=== PATIENT | female | born 1945 | race Caucasian/White ===

== ENCOUNTER 2017-01-24 06:42 | Day surgery (SDC) | payer MEDICARE, BC ==
[2017-01-24] MEDS ORDERED: Bupivacaine 0.5% 50 ML MDV ONE (06:52)
[2017-01-24] MEDS ORDERED: Lidocaine 1% with EPINEPHrine 1:100,000 50 ML MDV ONE (06:52)
[2017-01-24] MEDS ORDERED: Dextrose 5%-Lactated Ringers 1,000 ML IV SCH (07:15)
[2017-01-24] MEDS ORDERED: Propofol 200 MG/20 ML SDV ONE (08:41)
[2017-01-24] MEDS ORDERED: fentaNYL 100 MCG/2 ML SDV ONE (08:41)
[2017-01-24] MEDS ORDERED: ceFAZolin 2 GM in Sodium Chloride 0.9% 50 ML IV ONE (09:00)
[2017-01-24] MEDS ORDERED: Linezolid 200 MG/100 ML Bag IV ONE (09:09)
[2017-01-24 10:38] VITALS: BP 136/62
--- NOTE | 2017-02-02 11:29 | OR ---
DATE OF PROCEDURE: 01/24/2017 PREOPERATIVE DIAGNOSIS: Bard port with leaking catheter. POSTOPERATIVE DIAGNOSIS: Bard port with leaking catheter. OPERATIVE PROCEDURE: Removal and replacement of a Bard port ([id number]). ANESTHESIA: Local plus IV sedation. INDICATIONS FOR PROCEDURE: This is a 71-year-old, presently receiving chemotherapy for an advanced breast cancer. She has known recently to have a leak in her Bard port tubing, more or less where it crosses under the clavicle. The plan is to proceed with placement of the Bard port system. We will attempt to do it through the same track that the present port is located, and potential risks including bleeding, infection, further malfunction with breakage of port system were all reviewed, and the patient wishes to proceed. DETAILS OF PROCEDURE: The patient was taken to the operating room and placed in a supine position. IV sedation was administered, after which the upper chest and neck areas were prepped and draped. The area over the pre-existing Bard port was then anesthetized with 1% lidocaine, mixed with Marcaine, a transverse incision made, carried down through the skin and subcutaneous tissue. The port was then mobilized upward along with a section of the port tubing. These were then disconnected while the port tubing was being occluded, and through the port tubing, then a guidewire was passed under fluoroscopic surveillance through the length of the tubing and into the superior vena cava. This then allowed the pre- existing port tubing to be removed. Then over a guidewire, new port tubing was then positioned and then brought to the point where it would come into the area of the right atrial superior vena cava junction. The tubing was then cut in appropriate length on its proximal end and attached to the new port, which is a power port, and this was flushed with heparinized saline. The port was then placed back into the capsule, which was then closed with 2 layers of 3-0 and 4-0 Vicryl stitch deep and 5-0 Vicryl subcuticular stitch. Steri- Strips were applied. The port was once again flushed, and good inflow and outflow was confirmed, and the procedure concluded. The patient was taken to the recovery room in satisfactory condition. Shahbaz Rodrigez MD /[id number]
== END 2017-01-24 11:00 | disposition home or self-care (01) ==
LOC: JP.SDS 06:42
PROVIDERS: ATTEND Surgery
DX: Z51.11 Encounter for antineoplastic chemotherapy (principal); T83.038A Leakage of other urinary catheter, initial encounter; I25.10 Atherosclerotic heart disease of native coronary artery without angina pectoris; I10 Essential (primary) hypertension; J44.9 Chronic obstructive pulmonary disease, unspecified; E11.9 Type 2 diabetes mellitus without complications; F32.9 Major depressive disorder, single episode, unspecified; Z95.1 Presence of aortocoronary bypass graft; Z88.2 Allergy status to sulfonamides; Z88.8 Allergy status to other drugs, medicaments and biological substances
CPT/HCPCS: 36582; C1788; J0690; J1642; J2020; J2704; J3010; J7042; J7050

== ENCOUNTER 2017-08-12 14:49 | Emergency (ER) | payer MEDICARE, BC ==
[2017-08-12] MEDS ORDERED: Lidocaine 1% 20 ML MDV INJECT ONE (15:15)
[2017-08-12] MEDS ORDERED: Bacitracin Oint 1 GM U/D Packet TOP ONE (15:16)
--- NOTE | 2017-08-12 15:18 | EDM.PDOC ---
ED HPI GENERAL MEDICAL PROBLEM - General Chief Complaint: General Stated Complaint: FALL Time Seen by Provider: 08/12/17 15:17 Source of Information: Reports: Patient History Limitations: Reports: No Limitations - History of Present Illness INITIAL COMMENTS - FREE TEXT/NARRATIVE: pt went home for lunch and she ended up tripping and landed on the l rt side of her face and had 4 laceration about 1/8 inch in lenghth x 4. She also hit very hard on her left knee and she has alot of bruising on the knee cap area. Onset: Today Duration: Hour(s): Location: Reports: Face, Lower Extremity, Left Associated Symptoms: Reports: No Other Symptoms Left Knee Pain Score (Numeric/FACES): 8 - Related Data Allergies Allergy/AdvReac Type Severity Reaction Status Date / Time aspirin Allergy Cannot Verified 08/12/17 15:04 Remember midazolam HCl [From Versed] Allergy Difficulty Verified 08/12/17 15:04 Breathing Sulfa (Sulfonamide Allergy Cannot Verified 08/12/17 15:04 Antibiotics) Remember codeine AdvReac Vomiting Verified 08/12/17 15:04 Home Meds: Home Meds Atenolol [Tenormin] 50 mg PO DAILY 03/17/16 [History] Citalopram Hydrobromide [Celexa] 20 mg PO DAILY 03/17/16 [History] Lisinopril 20 mg PO BID 03/17/16 [History] Pantoprazole [ProTONIX] 40 mg PO ACBREAKFAST 03/17/16 [History] amLODIPine [Norvasc] 5 mg PO DAILY 03/17/16 [History] Polyvinyl Alcohol/Povidone [Artificial Tears Drops] 2 drop OP Q3H PRN 03/30/16 [ History] Acetaminophen [Tylenol] 650 mg PO Q6H PRN 05/28/16 [History] Simvastatin [Simvastatin] 40 mg PO BEDTIME 05/28/16 [History] Anastrozole [Arimidex] 1 mg PO DAILY 01/23/17 [History] LORazepam [Ativan] 0.5 mg PO BID 01/23/17 [History] metFORMIN [Glucophage XR] 500 mg PO DAILY 01/23/17 [History] traMADol [Ultram] 50 mg PO Q6HR PRN 01/23/17 [History] Past Medical History HEENT History: Reports: Cataract, Impaired Vision, Sinusitis Other HEENT History: wears glasses Cardiovascular History: Reports: Bypass, CAD, High Cholesterol, Hypertension, SOB on Exertion, Stents Respiratory History: Reports: COPD, Interstitial Lung Disease, Pneumothorax, Sleep Apnea Gastrointestinal History: Reports: Cholelithiasis, Colon Polyp, Diverticulosis, GERD, Hiatal Hernia Genitourinary History: Reports: Urinary Incontinence 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: Musculoskeletal History: Reports: Arthritis, Back Pain, Chronic Neurological History: Reports: Headaches, Chronic Psychiatric History: Reports: Anxiety, Depression Endocrine/Metabolic History: Reports: Obesity/BMI 30+, Vitamin D Deficiency Immunologic History: Reports: Immunosuppression Oncologic (Cancer) History: Reports: Breast Other Oncologic History: POSITIVE LYMPH NODES Dermatologic History: Reports: Psoriasis - Infectious Disease History Infectious Disease History: Reports: Chicken Pox, Measles, Mumps - Past Surgical History HEENT Surgical History: Reports: Eye Surgery Cardiovascular Surgical History: Reports: Coronary Artery Bypass, Coronary Artery Stent, Vascular Surgery Female Surgical History: Reports: Breast Biopsy, Mastectomy, Tubal Ligation Musculoskeletal Surgical History: Reports: Knee Replacement Oncologic Surgical History: Reports: Biopsy of Breast, Mastectomy Social & Family History - Family History Family Medical History: Noncontributory Cardiac: Reports: [place] Respiratory: Reports: COPD Musculoskeletal: Reports: Arthritis, Back pain, Chronic, Fibromyalgia Endocrine/Metabolic: Reports: Hypothyroidism Oncologic: Reports: Prostate - Tobacco Use Smoking Status *Q: Former Smoker Years of Tobacco use: 30 Packs/Tins Daily: 4 Used Tobacco, but Quit: Yes Month Tobacco Last Used: 0 Second Hand Smoke Exposure: No - Caffeine Use Caffeine Use: Reports: Coffee, Tea - Alcohol Use Days Per Week of Alcohol Use: 0 - Recreational Drug Use Recreational Drug Use: No ED ROS GENERAL - Review of Systems Review Of Systems: See Below Constitutional: Reports: No Symptoms HEENT: Reports: No Symptoms, Other (pt has facial lacerations) Respiratory: Reports: No Symptoms Cardiovascular: Reports: No Symptoms Endocrine: Reports: No Symptoms GI/Abdominal: Reports: No Symptoms : Reports: No Symptoms Musculoskeletal: Reports: Other ( pain in the left knee) Skin: Reports: No Symptoms Neurological: Reports: No Symptoms ED EXAM, GENERAL - Physical Exam Exam: See Below Free Text/Narrative:: pt arrived with severe pain in the left knee. She has 4 1/8 inch laceration on the rt side of her face. This is like multiple puncture wounds. Exam Limited By: No Limitations General Appearance: Alert, Anxious, Moderate Distress Ears: Normal TMs Nose: Normal Inspection Throat/Mouth: Normal Inspection Head: Atraumatic Neck: Normal Inspection Respiratory/Chest: No Respiratory Distress Cardiovascular: Regular Rate, Rhythm GI/Abdominal: Soft, Non-Tender (Female) Exam: Deferred Rectal (Female) Exam: Deferred Extremities: Other ( Pt has severe bruising on the left knee cap area. ) Neurological: Alert, Oriented, Normal Cognition Psychiatric: Normal Affect Course - Vital Signs Last Recorded V/S: Last Vital Signs Temp 36.6 C 08/12/17 15:02 Pulse 86 08/12/17 18:04 Resp 16 08/12/17 18:04 BP 113/53 L 08/12/17 18:04 Pulse Ox 95 08/12/17 18:04 - Orders/Labs/Meds Orders: Active Orders 24 hr Category Date Time Status Knee 3V Lt [CR] Stat Exams 08/12/17 15:16 Taken Knee wo Cont Lt [CT] Stat Exams 08/12/17 16:48 Taken Meds: Medications Discontinued Medications Generic Name Dose Route Start Last Admin Trade Name Freq PRN Reason Stop Dose Admin Hydrocodone Bitart/Acetaminophen 1 tab 08/12/17 18:40 [place] 325-5 Mg PO 08/12/17 18:41 ONETIME ONE Bacitracin 1 dose 08/12/17 15:16 08/12/17 15:28 Bacitracin Oint 1 Gm TOP 08/12/17 15:17 1 dose ONETIME ONE Administration Lidocaine HCl 20 ml 08/12/17 15:15 08/12/17 15:28 Xylocaine 1% INJECT 08/12/17 15:16 20 ml ONETIME ONE Administration - Re-Assessments/Exams Free Text/Narrative Re-Assessment/Exam: 08/12/17 18:14 pt had an xray of the left knee which did not show a fracture. Because of the severe pain a cat scan of the knee was done. The laceration on the rt side of the face was cleansed well and infiltrated with lidocaine. The wounds were closed with 5-0 chromoic and 6-0 prolene. Departure - Departure Time of Disposition: 18:23 Disposition: Home, Self-Care 01 Condition: Fair Clinical Impression: Laceration, Contusion of left knee - Discharge Information Instructions: Laceration Care, Adult, Contusion, [id number] Referrals: Luis Alberto Colon MD [Primary Care Provider] - Forms: ED Department Discharge Care Plan Goals: keep facial area dry, no further ointments, sr in 7-8 days, keep pressure dressing on until tomorrow am and it can be open to air. knee xray shows a destructive osseous lesion which should be evaluated by an MRI. rtc for MRI. appt with Dr Colon next mon or . jackson [id number] prn for pain. - My Orders Last 24 Hours: My Active Orders 08/12/17 15:16 Knee 3V Lt [CR] Stat 08/12/17 16:48 Knee wo Cont Lt [CT] Stat - Assessment/Plan Last 24 Hours: My Active Orders 08/12/17 15:16 Knee 3V Lt [CR] Stat 08/12/17 16:48 Knee wo Cont Lt [CT] Stat
[2017-08-12 18:05] VITALS: BP 113/53
[2017-08-12] MEDS ORDERED: Acetaminophen/HYDROcodone 325-5 MG Tab PO ONE (18:40)
--- NOTE | 2017-08-14 09:57 | CR ---
Knee 3V Lt INDICATION: contusion to left knee FINDINGS: No acute fracture. Moderate medial and lateral compartment narrowing.
== END 2017-08-12 19:17 | disposition home or self-care (01) ==
LOC: JP.ED 14:49
DX: S01.81XA Laceration without foreign body of other part of head, initial encounter (principal); S80.02XA Contusion of left knee, initial encounter; I10 Essential (primary) hypertension; E78.00 Pure hypercholesterolemia, unspecified; I25.10 Atherosclerotic heart disease of native coronary artery without angina pectoris; F32.9 Major depressive disorder, single episode, unspecified; Z85.3 Personal history of malignant neoplasm of breast; Z95.1 Presence of aortocoronary bypass graft; Z95.5 Presence of coronary angioplasty implant and graft; Z96.659 Presence of unspecified artificial knee joint; Z87.891 Personal history of nicotine dependence; Z79.84 Long term (current) use of oral hypoglycemic drugs; Z79.899 Other long term (current) drug therapy; Z88.2 Allergy status to sulfonamides; Z88.5 Allergy status to narcotic agent; Z88.6 Allergy status to analgesic agent; Z88.8 Allergy status to other drugs, medicaments and biological substances; W01.0XXA Fall on same level from slipping, tripping and stumbling without subsequent striking against object, initial encounter
CPT/HCPCS: 12004; 12015; 73562-26-LT; 73562-LT; 73700-LT; 99283-25; 99284-25

== ENCOUNTER 2017-08-13 11:28 | Emergency (ER) | payer MEDICARE, BC ==
[2017-08-13 11:44] VITALS: BP 131/76
--- NOTE | 2017-08-13 12:12 | EDM.PDOC ---
ED HPI GENERAL MEDICAL PROBLEM - General Chief Complaint: Upper Extremity Injury/Pain Stated Complaint: FELL YESTERDAY, RT WRIST PAIN TODAY Time Seen by Provider: 08/13/17 11:50 Source of Information: Reports: Patient History Limitations: Reports: No Limitations - History of Present Illness INITIAL COMMENTS - FREE TEXT/NARRATIVE: Pepper presents today with complaint of right wrist pain. She reports she was in the emergency room yesterday for a fall and developed multiple abrasions, bruising to her right face, right arm and pain to her right knee. She states her right wrist started to hurt more last night and this morning. Right Wrist Pain Score (Numeric/FACES): 7 - Related Data Allergies Allergy/AdvReac Type Severity Reaction Status Date / Time aspirin Allergy Cannot Verified 08/13/17 11:50 Remember midazolam HCl [From Versed] Allergy Difficulty Verified 08/13/17 11:50 Breathing Sulfa (Sulfonamide Allergy Cannot Verified 08/13/17 11:50 Antibiotics) Remember codeine AdvReac Vomiting Verified 08/13/17 11:50 Home Meds: Home Meds Atenolol [Tenormin] 50 mg PO DAILY 03/17/16 [History] Citalopram Hydrobromide [Celexa] 20 mg PO DAILY 03/17/16 [History] Lisinopril 20 mg PO BID 03/17/16 [History] Pantoprazole [ProTONIX] 40 mg PO ACBREAKFAST 03/17/16 [History] amLODIPine [Norvasc] 5 mg PO DAILY 03/17/16 [History] Polyvinyl Alcohol/Povidone [Artificial Tears Drops] 2 drop OP Q3H PRN 03/30/16 [ History] Acetaminophen [Tylenol] 650 mg PO Q6H PRN 05/28/16 [History] Simvastatin [Simvastatin] 40 mg PO BEDTIME 05/28/16 [History] Anastrozole [Arimidex] 1 mg PO DAILY 01/23/17 [History] LORazepam [Ativan] 0.5 mg PO BID 01/23/17 [History] metFORMIN [Glucophage XR] 500 mg PO DAILY 01/23/17 [History] traMADol [Ultram] 50 mg PO Q6HR PRN 01/23/17 [History] Past Medical History HEENT History: Reports: Cataract, Impaired Vision, Sinusitis Other HEENT History: wears glasses Cardiovascular History: Reports: Bypass, CAD, High Cholesterol, Hypertension, SOB on Exertion, Stents Respiratory History: Reports: COPD, Interstitial Lung Disease, Pneumothorax, Sleep Apnea Gastrointestinal History: Reports: Cholelithiasis, Colon Polyp, Diverticulosis, GERD, Hiatal Hernia Genitourinary History: Reports: Urinary Incontinence 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: Musculoskeletal History: Reports: Arthritis, Back Pain, Chronic Neurological History: Reports: Headaches, Chronic Psychiatric History: Reports: Anxiety, Depression Endocrine/Metabolic History: Reports: Obesity/BMI 30+, Vitamin D Deficiency Immunologic History: Reports: Immunosuppression Oncologic (Cancer) History: Reports: Breast Other Oncologic History: POSITIVE LYMPH NODES Dermatologic History: Reports: Psoriasis - Infectious Disease History Infectious Disease History: Reports: Chicken Pox, Measles, Mumps - Past Surgical History HEENT Surgical History: Reports: Eye Surgery Cardiovascular Surgical History: Reports: Coronary Artery Bypass, Coronary Artery Stent, Vascular Surgery Female Surgical History: Reports: Breast Biopsy, Mastectomy, Tubal Ligation Musculoskeletal Surgical History: Reports: Knee Replacement Oncologic Surgical History: Reports: Biopsy of Breast, Mastectomy Social & Family History - Family History Family Medical History: Noncontributory Cardiac: Reports: [place] Respiratory: Reports: COPD Musculoskeletal: Reports: Arthritis, Back pain, Chronic, Fibromyalgia Endocrine/Metabolic: Reports: Hypothyroidism Oncologic: Reports: Prostate - Tobacco Use Smoking Status *Q: Former Smoker Years of Tobacco use: 30 Packs/Tins Daily: 4 Used Tobacco, but Quit: Yes Month Tobacco Last Used: 20 years Second Hand Smoke Exposure: No - Caffeine Use Caffeine Use: Reports: Tea - Alcohol Use Days Per Week of Alcohol Use: 0 - Recreational Drug Use Recreational Drug Use: No Review of Systems - Review of Systems Review Of Systems: See Below Constitutional: Denies: Chills, Diaphoresis, Fever Eyes: Reports: No Symptoms Ears: Reports: No Symptoms Nose: Reports: No Symptoms Mouth/Throat: Reports: No Symptoms Respiratory: Denies: Shortness of Breath, Wheezing, Cough, Sputum Cardiovascular: Denies: Chest Pain, Edema, Lightheadedness, Palpitations, Syncope GI/Abdominal: Reports: No Symptoms Genitourinary: Reports: No Symptoms Musculoskeletal: Reports: Arm Pain Skin: Reports: Bruising, Erythema, Other Neurological: Reports: Headache. Denies: Numbness, Tingling, Weakness Psychiatric: Reports: No Symptoms ED EXAM, GENERAL - Physical Exam Exam: See Below Free Text/Narrative:: Pepper is an alert, oriented and pleasant 72 year old female presenting with right arm pain status post fall yesterday. while in the emergency room yesterday she was offered a right wrist x-ray, however she declined at that time Increase in pain and decrease ROM this morning to the wrist. She denies fever, chills, nausea, vomiting. Exam Limited By: No Limitations General Appearance: Alert, WD/WN, No Apparent Distress Eye Exam: Bilateral Eye: EOMI, Normal Inspection, PERRL Ears: Normal External Exam, Normal Canal, Hearing Grossly Normal, Normal TMs Ear Exam: Bilateral Ear: Auricle Normal, Canal Normal, TM normal, Other ( Cerumen noted to bilateral ears, no discharge) Nose: Normal Inspection, Normal Mucosa, No Blood Throat/Mouth: Normal Inspection, Normal Lips, Normal Oropharynx, Normal Voice, No Airway Compromise Head: Facial Swelling, Facial Tenderness, Other (ecchymosis from fall yesterday. ) Neck: Normal Inspection, Supple, Non-Tender, Full Range of Motion. No: Lymphadenopathy (R), Lymphadenopathy (L) Respiratory/Chest: No Respiratory Distress, No Accessory Muscle Use, Chest Non- Tender, Decreased Breath Sounds Cardiovascular: Normal Peripheral Pulses, Regular Rate, Rhythm, No Edema, No Murmur Peripheral Pulses: 2+: Radial (L), Radial (R) GI/Abdominal: Normal Bowel Sounds, Soft, Non-Tender, No Distention, No Mass Back Exam: Normal Inspection, Full Range of Motion. No: CVA Tenderness (R), CVA Tenderness (L) Extremities: Normal Capillary Refill, Arm Pain, Other (right arm tender, full ROM, sensation in tact) Neurological: Alert, Oriented, CN II-XII Intact, Normal Cognition, No Motor/ Sensory Deficits, Other (In wheelchair due to right knee injury yesterday. ) Psychiatric: Normal Affect, Normal Mood Skin Exam: Warm, Dry, Ecchymosis, Other (ecchymosis to right face, right knee and right arm. ) Lymphatic: No Adenopathy Course - Vital Signs Last Recorded V/S: Last Vital Signs Temp 37.1 C 08/13/17 11:42 Pulse 82 08/13/17 11:42 Resp 16 08/13/17 11:42 BP 131/76 08/13/17 11:42 Pulse Ox 98 08/13/17 11:42 - Orders/Labs/Meds Orders: Active Orders 24 hr Category Date Time Status Wrist 2V Rt [CR] Stat Exams 08/13/17 12:06 Taken - Radiology Interpretation Free Text/Narrative:: X-ray of right wrist wet read/reviewed, no acute findings. Departure - Departure Time of Disposition: 12:38 Disposition: Home, Self-Care 01 Condition: Fair Clinical Impression: Right wrist sprain - Discharge Information Referrals: Luis Alberto Colon MD [Primary Care Provider] - Forms: ED Department Discharge Additional Instructions: You have been treated for a right wrist sprain. There was no evidence of fracture on your x-ray today. A radiologist will do an official reading of your x-ray tomorrow. If there are any findings you will be notified. Use adalberto wrap, wrist splint as directed. You can use ice packs to areas of pain for 15-20 minutes at a time for comfort several times a day. Take the hydrocodone you were prescribed yesterday as directed for pain. Rest, elevate your right arm and right leg that hurt. Follow up with Dr. Colon tomorrow or Monday for recheck. Return for worsening, issues or concerns. - My Orders Last 24 Hours: My Active Orders 08/13/17 12:06 Wrist 2V Rt [CR] Stat - Assessment/Plan Last 24 Hours: My Active Orders 08/13/17 12:06 Wrist 2V Rt [CR] Stat Assessment:: Right wrist sprain Adalbreto wrap and wrist splint applied Plan: Patient has been treated for a right wrist sprain. There was no evidence of fracture on her x-ray today. A radiologist will do an official reading of x-ray tomorrow. If there are any other findings patient will be notified. Use adalberto wrap, wrist splint as directed. She can use ice packs to areas of pain for 15-20 minutes at a time for comfort several times a day. Take the hydrocodone she was prescribed yesterday as directed for pain. Rest, elevate right arm and right leg that hurt. Follow up with Dr. Colon tomorrow or Monday for recheck. Return for worsening, issues or concerns.
--- NOTE | 2017-08-14 12:49 | CR ---
Wrist 2V Rt INDICATION: fall, pain to right wrist. FINDINGS: Negative right wrist. No acute fracture.
== END 2017-08-13 12:54 | disposition home or self-care (01) ==
LOC: JP.ED 11:28
DX: S63.501A Unspecified sprain of right wrist, initial encounter (principal); Z87.891 Personal history of nicotine dependence; I10 Essential (primary) hypertension; I25.10 Atherosclerotic heart disease of native coronary artery without angina pectoris; E78.00 Pure hypercholesterolemia, unspecified; E66.9 Obesity, unspecified; Z79.899 Other long term (current) drug therapy; Z88.6 Allergy status to analgesic agent; Z88.2 Allergy status to sulfonamides; Z88.5 Allergy status to narcotic agent; W19.XXXA Unspecified fall, initial encounter
CPT/HCPCS: 73100-26-RT; 73100-RT; 99283; 99284-25

== ENCOUNTER 2019-11-28 13:39 | Emergency (ER) | payer MEDICARE, BC ==
[2019-11-28 13:58] VITALS: BP 160/97; PULSE 60
--- NOTE | 2019-11-28 14:37 | EDM.PDOC ---
ED HPI GENERAL MEDICAL PROBLEM - General Chief Complaint: General Stated Complaint: FALL Time Seen by Provider: 11/28/19 14:10 Source of Information: Reports: Patient, Family History Limitations: Reports: No Limitations - History of Present Illness INITIAL COMMENTS - FREE TEXT/NARRATIVE: 74-year-old female slipped and fell bumping her head and landing on her side in the bathroom. She had a headache and some mild neck discomfort and some increased low back pain so she came in to be evaluated. She also has some mild neck stiffness. 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 Now that she is here in the emergency room she admits she feels fairly normal, her headache is gone. Onset: Sudden Duration: Hour(s): (Within the last 2 hours) Location: Reports: Head, Back Worsens with: Reports: Other (Some increased back pain with movement and attempting to stand) Associated Symptoms: Reports: Headaches (Had a headache after she bumped her head but that is gone). Denies: Confusion, Chest Pain, Cough, Nausea/Vomiting, Shortness of Breath Headache Pain Score (Numeric/FACES): 7 - Related Data Allergies Allergy/AdvReac Type Severity Reaction Status Date / Time aspirin Allergy Cannot Verified 11/28/19 13:56 Remember midazolam HCl [From Versed] Allergy Difficulty Verified 11/28/19 13:56 Breathing Sulfa (Sulfonamide Allergy Cannot Verified 11/28/19 13:56 Antibiotics) Remember codeine AdvReac Vomiting Verified 11/28/19 13:56 Home Meds: Home Meds Atenolol [Tenormin] 50 mg PO DAILY 03/17/16 [History] Citalopram Hydrobromide [Celexa] 20 mg PO DAILY 03/17/16 [History] Lisinopril 20 mg PO DAILY 03/17/16 [History] Pantoprazole [ProTONIX] 40 mg PO ACBREAKFAST 03/17/16 [History] amLODIPine [Norvasc] 5 mg PO DAILY 03/17/16 [History] Polyvinyl Alcohol/Povidone [Artificial Tears Drops] 2 drop OP Q3H PRN 03/30/16 [ History] Acetaminophen [Tylenol] 650 mg PO Q6H PRN 05/28/16 [History] LORazepam [Ativan] 0.5 mg PO BID PRN 01/23/17 [History] traMADol [Ultram] 50 mg PO Q6HR PRN 01/23/17 [History] Past Medical History HEENT History: Reports: Cataract, Impaired Vision, Sinusitis Other HEENT History: wears glasses Cardiovascular History: Reports: Bypass, CAD, High Cholesterol, Hypertension, SOB on Exertion, Stents Respiratory History: Reports: COPD, Interstitial Lung Disease, Pneumothorax, Sleep Apnea Gastrointestinal History: Reports: Cholelithiasis, Colon Polyp, Diverticulosis, GERD, Hiatal Hernia Genitourinary History: Reports: Urinary Incontinence 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: Musculoskeletal History: Reports: Arthritis, Back Pain, Chronic Neurological History: Reports: Headaches, Chronic Psychiatric History: Reports: Anxiety, Depression Endocrine/Metabolic History: Reports: Obesity/BMI 30+, Vitamin D Deficiency Immunologic History: Reports: Immunosuppression Oncologic (Cancer) History: Reports: Bone, Breast Other Oncologic History: POSITIVE LYMPH NODES Dermatologic History: Reports: Psoriasis - Infectious Disease History Infectious Disease History: Reports: Chicken Pox, Measles, Mumps - Past Surgical History HEENT Surgical History: Reports: Eye Surgery Cardiovascular Surgical History: Reports: Coronary Artery Bypass, Coronary Artery Stent, Vascular Surgery GI Surgical History: Reports: Cholecystectomy Female Surgical History: Reports: Breast Biopsy, Mastectomy, Tubal Ligation Neurological Surgical History: Reports: Other (See Below) Other Neurological Surgeries/Procedures: Mets to brain from [facility] Musculoskeletal Surgical History: Reports: Knee Replacement Oncologic Surgical History: Reports: Biopsy of Breast, Mastectomy Social & Family History - Family History Family Medical History: Noncontributory Cardiac: Reports: [place] Respiratory: Reports: COPD Musculoskeletal: Reports: Arthritis, Back pain, Chronic, Fibromyalgia Endocrine/Metabolic: Reports: Hypothyroidism Oncologic: Reports: Prostate - Tobacco Use Smoking Status *Q: Never Smoker Second Hand Smoke Exposure: No - Caffeine Use Caffeine Use: Reports: Coffee, Tea - Recreational Drug Use Recreational Drug Use: No ED ROS GENERAL - Review of Systems Review Of Systems: See Below Constitutional: Denies: Fever, Chills HEENT: Denies: Vision Change Respiratory: Denies: Shortness of Breath Cardiovascular: Denies: Chest Pain GI/Abdominal: Denies: Abdominal Pain Musculoskeletal: Reports: Neck Pain, Back Pain Skin: Denies: Bruising Neurological: Reports: Headache ED EXAM, GENERAL - Physical Exam Exam: See Below Exam Limited By: No Limitations General Appearance: Alert, No Apparent Distress Eye Exam: Bilateral Eye: Normal Inspection Head: Atraumatic (I cannot find any evidence of recent trauma such as bruising, abrasion or swelling, no tender areas to palpation) Neck: Other ( minimal tenderness to paracervical muscles with palpation, no significant increased pain with percussion or rotation) Respiratory/Chest: No Respiratory Distress, Lungs Clear Back Exam: Paraspinal Tenderness (Some paraspinal tenderness to palpation but no direct vertebral percussion tenderness at this time). No: Vertebral Tenderness Extremities: Non-Tender Neurological: Alert, Oriented, No Motor/Sensory Deficits Psychiatric: Normal Affect, Normal Mood Course - Vital Signs Last Recorded V/S: Last Vital Signs Temp 98.0 F 11/28/19 14:06 Pulse 60 11/28/19 14:06 Resp 16 11/28/19 14:06 BP 160/97 H 11/28/19 14:06 Pulse Ox 98 11/28/19 14:06 - Re-Assessments/Exams Free Text/Narrative Re-Assessment/Exam: 11/29/19 07:24 Patient is willing to forego any imaging at this time considering she is getting regular radiation treatments for her cancer and she is feeling better and has no significant focal pain of the neck or back. She was encouraged to return if she develops any significant focal pain but also was warned to expect some generalized muscle stiffness after her fall. She will comment on her fall when she goes in for her next radiology treatment and they can consider imaging at that time. Departure - Departure Time of Disposition: 14:56 Disposition: Home, Self-Care 01 Clinical Impression: Low back strain Qualifiers: Encounter type: initial encounter Qualified Code(s): S39.012A - Strain of muscle, fascia and tendon of lower back, initial encounter Strain of neck Qualifiers: Encounter type: initial encounter Qualified Code(s): S16.1XXA - Strain of muscle, fascia and tendon at neck level, initial encounter - Discharge Information Instructions: Lumbosacral Strain Referrals: Phuong Cassidy PA-C [Primary Care Provider] - Forms: ED Department Discharge Care Plan Goals: Continue current medications, increase activity as tolerated and report to your regular physicians next week about any progress questions or lingering symptoms. Return anytime if worsening or concerns. Sepsis Event Note - Evaluation Sepsis Screening Result: No Definite Risk - Focused Exam Date Exam was Performed: 11/29/19 Time Exam was Performed: 07:21
== END 2019-11-28 14:56 | disposition home or self-care (01) ==
LOC: JP.ED 13:39
DX: S39.012A Strain of muscle, fascia and tendon of lower back, initial encounter (principal); S16.1XXA Strain of muscle, fascia and tendon at neck level, initial encounter; I25.10 Atherosclerotic heart disease of native coronary artery without angina pectoris; I10 Essential (primary) hypertension; J44.9 Chronic obstructive pulmonary disease, unspecified; K21.9 Gastro-esophageal reflux disease without esophagitis; F32.9 Major depressive disorder, single episode, unspecified; F41.9 Anxiety disorder, unspecified; E66.9 Obesity, unspecified; Z68.31 Body mass index [BMI] 31.0-31.9, adult; Z88.6 Allergy status to analgesic agent; Z88.8 Allergy status to other drugs, medicaments and biological substances; Z88.2 Allergy status to sulfonamides; Z88.5 Allergy status to narcotic agent; Z95.1 Presence of aortocoronary bypass graft; Z95.5 Presence of coronary angioplasty implant and graft; Z79.899 Other long term (current) drug therapy; W01.0XXA Fall on same level from slipping, tripping and stumbling without subsequent striking against object, initial encounter; Y92.89 Other specified places as the place of occurrence of the external cause
CPT/HCPCS: 99282; 99283

== ENCOUNTER 2019-12-03 15:25 | Inpatient (IN) | payer BC, MEDICARE ==
[2019-12-03] MEDS ORDERED: Polyethylene Glycol 3350 Powder 17 GM Packet PO PRN (17:29)
[2019-12-03] MEDS ORDERED: Albuterol 0.083% 2.5 MG/3 ML Neb Soln NEB PRN (17:29)
[2019-12-03] MEDS ORDERED: Ondansetron 4 MG/2 ML SDV IV PRN (17:29)
[2019-12-03] MEDS ORDERED: Sodium Chloride 0.9% 10 ML Syringe FLUSH PRN (17:29)
--- NOTE | 2019-12-03 17:40 | PCM.HP.2 ---
H&P History of Present Illness - General Date of Service: 12/03/19 Admit Problem/Dx: Admission Diagnosis/Problem Admission Diagnosis/Problem Pain Source of Information: Family, Old Records, Provider, RN Notes Reviewed. No: Patient History Limitations: Reports: Altered Mental Status (Infusion) - History of Present Illness Initial Comments - Free Text/Narative: Ms. Rutledge is a 74-year-old woman who was admitted as a direct admission from the oncology clinic with uncontrolled pain and new weakness secondary to metastatic end-stage breast carcinoma. Ms. 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 She also has known metastatic disease to bone and uncontrolled pain related to this. She has had 3 known metastatic lesions to the brain and has received 2 courses of radiation therapy. Over the past week has become progressively more confused with right leg weakness and frequent falls. Initially the request from oncology clinic was for admission for pain control and lumbar puncture to evaluate for leptomeningeal disease. Ms. Rutledge is very confused and unable to provide a meaningful history concerning her recent symptoms or review of systems. Her niece is present and is her healthcare power of claim attorney. She strongly feels that Ms. Rutledge would not want further aggressive intervention or evaluation, she has been told by her oncology provider that her lifespan is very limited at this point. Her niece has requested that we proceed with comfort cares only and not pursue further aggressive interventions or evaluation. Back Pain Score (Numeric/FACES): 8 - Related Data Allergies/Adverse Reactions: Allergies Allergy/AdvReac Type Severity Reaction Status Date / Time aspirin Allergy Cannot Verified 12/03/19 16:00 Remember midazolam HCl [From Versed] Allergy Difficulty Verified 12/03/19 16:00 Breathing Sulfa (Sulfonamide Allergy Cannot Verified 12/03/19 16:00 Antibiotics) Remember codeine AdvReac Vomiting Verified 12/03/19 16:00 Home Medications: Home Meds Atenolol [Tenormin] 50 mg PO DAILY 03/17/16 [History] Citalopram Hydrobromide [Celexa] 20 mg PO DAILY 03/17/16 [History] Lisinopril 10 mg PO DAILY 03/17/16 [History] Pantoprazole [ProTONIX] 40 mg PO ACBREAKFAST 03/17/16 [History] amLODIPine [Norvasc] 2.5 mg PO DAILY 03/17/16 [History] Acetaminophen [Tylenol] 650 mg PO Q6H PRN 05/28/16 [History] LORazepam [Ativan] 0.5 mg PO Q6H PRN 01/23/17 [History] traMADol [Ultram] 50 mg PO Q6HR PRN 01/23/17 [History] Acetaminophen/HYDROcodone [[place] 325-5 MG] 2 tab PO Q4H PRN 12/03/19 [History] Albuterol Sulfate [Albuterol Sulfate Hfa] 2 inh INH QID 12/03/19 [History] Calcium Carbonate [Calcium] 500 mg PO DAILY 12/03/19 [History] Cyclobenzaprine [Flexeril] 10 mg PO TID PRN 12/03/19 [History] Diclofenac Sodium [Voltaren 1% Gel] 1 applic TOP QID 12/03/19 [History] Ferrous Sulfate 325 mg PO DAILY 12/03/19 [History] Gabapentin [Neurontin] 2 tab PO QID 12/03/19 [History] Multivitamin [Multi-Vitamin Daily] 1 tab PO DAILY 12/03/19 [History] Ondansetron [Zofran] 8 mg PO Q8H PRN 12/03/19 [History] Palbociclib [Ibrance] 1 tab PO DAILY 12/03/19 [History] Prochlorperazine Maleate [Compazine] 1 tab PO Q6H PRN 12/03/19 [History] Sennosides/Docusate Sodium [Senokot-S Tablet] 1 tab PO DAILY 12/03/19 [History] Simvastatin 40 mg PO BEDTIME 12/03/19 [History] Tamoxifen [Nolvadex] 20 mg PO DAILY 12/03/19 [History] methylPREDNISolone [Methylprednisolone] 1 tab PO DAILY 12/03/19 [History] Past Medical History HEENT History: Reports: Cataract, Impaired Vision, Sinusitis Other HEENT History: wears glasses Cardiovascular History: Reports: Bypass, CAD, High Cholesterol, Hypertension, SOB on Exertion, Stents Respiratory History: Reports: COPD, Interstitial Lung Disease, Pneumothorax, Sleep Apnea Gastrointestinal History: Reports: Cholelithiasis, Colon Polyp, Diverticulosis, GERD, Hiatal Hernia Genitourinary History: Reports: Urinary Incontinence 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 ribs. spine. brain. left shoulder. left leg Dermatologic History: Reports: Psoriasis - Infectious Disease History Infectious Disease History: Reports: Chicken Pox, Measles, Mumps - Past Surgical History Head Surgeries/Procedures: Reports: None HEENT Surgical History: Reports: Eye Surgery Cardiovascular Surgical History: Reports: Coronary Artery Bypass, Coronary Artery Stent, Vascular Surgery Respiratory Surgical History: Reports: Lung Resection GI Surgical History: Reports: Cholecystectomy Female Surgical History: Reports: Breast Biopsy, Mastectomy, Tubal Ligation Endocrine Surgical History: Reports: None Neurological Surgical History: Reports: Other (See Below) Other Neurological Surgeries/Procedures: Mets to brain from breast [place] Musculoskeletal Surgical History: Reports: Knee Replacement Oncologic Surgical History: Reports: Biopsy of Breast, Mastectomy Dermatological Surgical History: Reports: None Social & Family History - Family History Family Medical History: Noncontributory Cardiac: Reports: [place] Respiratory: Reports: COPD Musculoskeletal: Reports: Arthritis, Back pain, Chronic, Fibromyalgia Endocrine/Metabolic: Reports: Hypothyroidism Oncologic: Reports: Prostate - Tobacco Use Smoking Status *Q: Never Smoker - Caffeine Use Caffeine Use: Reports: Coffee, Soda, Tea - Recreational Drug Use Recreational Drug Use: No H&P Review of Systems - Review of Systems: Review Of Systems: See Below General: Reports: ROS unobtainable (Cognitive impairment with significant confusion) Exam - Exam Exam: See Below - Vital Signs Vital Signs: Last Vital Signs Temp 97.4 F 12/03/19 15:58 Pulse 98 12/03/19 15:58 Resp 16 12/03/19 15:58 BP 146/46 H 12/03/19 15:58 Pulse Ox 96 12/03/19 15:58 Weight: 188 lb 11.451 oz - Exam Quality Assessment: DVT Prophylaxis General: Alert, Cooperative, Moderate Distress. No: Oriented HEENT: Conjunctiva Clear, Hearing Intact, Mucosa Moist & [place], Normal Nasal Septum, Posterior Pharynx Clear, Pupils Equal Neck: Supple, Trachea Midline, +2 Carotid Pulse wo Bruit Lungs: Clear to Auscultation, Normal Respiratory Effort Cardiovascular: Regular Rate, Regular Rhythm, Normal S1, Normal S2. No: Systolic Murmur, Diastolic Murmur GI/Abdominal Exam: Soft, Non-Tender, No Organomegaly, No Distention Back Exam: Normal Inspection, Vertebral Tenderness Extremities: Normal Inspection, Non-Tender, No Pedal Edema Neurological: Cranial Nerves Intact, Normal Speech, Sensation Intact, Focal Deficit. No: Strength Equal Bilateral (Mild to moderate right leg and right arm weakness) Neuro Extensive - Mental Status: Alert, Normal Mood/Affect, Disorientation to Place, Disorientation to Time, Memory Loss-Remote Events, Memory Loss-Recent Events. No: Oriented x3, Normal Cognition, Memory Intact, Disorientation to Person Sepsis Event Note - Evaluation Sepsis Screening Result: No Definite Risk - Focused Exam Vital Signs: Vital Signs Temp Pulse Resp BP Pulse Ox 12/03/19 15:58 97.4 F 98 16 146/46 H 96 Date Exam was Performed: 12/03/19 Time Exam was Performed: 18:02 *Q Meaningful Use (ADM) - VTE Risk Assess *Q Each Risk Factor Represents 1 Point: Obesity ( BMI > 25 kg/m2) Total Score 1 Point Risk Factors: 1 Each Risk Factor Represents 2 Points: Malignancy (present or previous) Total Score 2 Point Risk Factors: 2 Each Risk Factor Represents 3 Points: Age 75 Years or Greater Total Score 3 Point Risk Factors: 3 Each Risk Factor Represents 5 Points: None Total Score 5 Point Risk Factors: 0 Venous Thromboembolism Risk Factor Score *Q: 6 Problem List Initiated/Reviewed/Updated: Yes Orders Last 24hrs: Active Orders 24 hr Category Date Time Status Patient Status [ADT] Routine ADT 12/03/19 17:29 Ordered Ambulate [RC] QID Care 12/03/19 17:29 Ordered Height and Weight [RC] DAILY Care 12/03/19 17:29 Ordered Intake and Output [RC] QSHIFT Care 12/03/19 17:29 Ordered Notify Provider Vital Signs [RC] ASDIRECTED Care 12/03/19 17:29 Ordered Oxygen Therapy [RC] PRN Care 12/03/19 17:29 Ordered Peripheral IV Care [RC] . DIRECTED Care 12/03/19 17:31 Ordered RT Aerosol Therapy [RC] ASDIRECTED Care 12/03/19 17:31 Ordered Up to Chair [RC] QID Care 12/03/19 17:29 Ordered VTE/DVT Education [RC] Per Unit Routine Care 12/03/19 17:29 Ordered Vital Signs [RC] Q4H Care 12/03/19 17:29 Ordered Regular Diet [DIET] Diet 12/03/19 Dinner Ordered Acetaminophen/HYDROcodone [[place] 325-5 MG] Med 12/03/19 17:24 Ordered 2 tab PO Q4H PRN Albuterol [Proventil Neb Soln] Med 12/03/19 17:29 Ordered 2.5 mg NEB Q4H PRN Citalopram Hydrobromide [Celexa] Med 12/04/19 09:00 Ordered 20 mg PO DAILY Docusate Sodium/Sennosides [Senna Plus] Med 12/03/19 21:00 Ordered 1 tab PO BID Enoxaparin [Lovenox] Med 12/03/19 17:30 Ordered 40 mg SUBCUT DAILY Gabapentin [Neurontin] Med 12/03/19 22:00 Ordered 600 mg PO QID LORazepam [Ativan] Med 12/03/19 17:24 Ordered 0.5 mg PO Q4H PRN Ondansetron [Zofran] Med 12/03/19 17:29 Ordered 4 mg IV Q4H PRN Palbociclib [Ibrance] Med 12/04/19 09:00 Ordered 1 tab PO DAILY Pantoprazole [ProTONIX] Med 12/04/19 07:30 Ordered 40 mg PO ACBREAKFAST Sodium Chloride 0.9% @ 125 MLS/HR (1000ml) Med 12/03/19 17:30 Ordered Sodium Chloride 0.9% [Normal Saline] 1,000 ml IV ASDIRECTED Sodium Chloride 0.9% [Saline Flush] Med 12/03/19 17:29 Ordered 10 ml FLUSH ASDIRECTED PRN Tamoxifen [Nolvadex] Med 12/04/19 09:00 Ordered 20 mg PO DAILY amLODIPine [Norvasc] Med 12/04/19 09:00 Ordered 2.5 mg PO DAILY atenoloL [Tenormin] Med 12/04/19 09:00 Ordered 50 mg PO DAILY dexAMETHasone [Dexamethasone] Med 12/03/19 17:45 Ordered 4 mg IVPUSH Q12H fentaNYL [Duragesic] Med 12/03/19 17:45 Ordered 12 mcg TRDERM Q72H lisinopriL [Prinivil] Med 12/04/19 09:00 Ordered 10 mg PO DAILY polyethylene glycoL 3350 [MiraLAX] Med 12/03/19 17:29 Ordered 17 gm PO DAILY PRN Peripheral IV Insertion Adult [OM.PC] Routine Oth 12/03/19 17:29 Ordered Resuscitation Status Routine Resus Stat 12/03/19 17:29 Ordered Medication Orders Hydrocodone Bitart/Acetaminophen ([place] 325-5 Mg) 2 tab PO Q4H PRN PRN Reason: Pain Albuterol (Proventil Neb Soln) 2.5 mg NEB Q4H PRN PRN Reason: Shortness Of Breath/wheezing Amlodipine Besylate (Norvasc) 2.5 mg PO DAILY [facility]OC Atenolol (Tenormin) 50 mg PO DAILY [facility] Dexamethasone (Dexamethasone) 4 mg IVPUSH Q12H QUOC Enoxaparin Sodium (Lovenox) 40 mg SUBCUT DAILY [facility] Fentanyl (Duragesic) 12 mcg TRDERM Q72H QUOC Gabapentin (Neurontin) 600 mg PO QID [facility] Sodium Chloride (Normal Saline) 1,000 mls @ 125 mls/hr IV ASDIRECTED QUOC Lisinopril (Prinivil) 10 mg PO DAILY [facility]OC Lorazepam (Ativan) 0.5 mg PO Q4H PRN PRN Reason: Anxiety Non-Formulary Medication (Citalopram Hydrobromide [Celexa]) 20 mg PO DAILY [facility] Non-Formulary Medication (Palbociclib [Ibrance]) 1 tab PO DAILY [facility] Non-Formulary Medication (Tamoxifen [Nolvadex]) 20 mg PO DAILY [facility] Ondansetron HCl (Zofran) 4 mg IV Q4H PRN PRN Reason: Nausea/Vomiting Pantoprazole Sodium (Protonix) 40 mg PO ACBREAKFAST [facility] Polyethylene Glycol (Miralax) 17 gm PO DAILY PRN PRN Reason: Constipation Senna/Docusate Sodium (Senna Plus) 1 tab PO BID [facility] Sodium Chloride (Saline Flush) 10 ml FLUSH ASDIRECTED PRN PRN Reason: Keep Vein Open Assessment/Plan Comment:: ASSESSMENT AND PLAN 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 New weakness and confusion present over the past week likely secondary to current brain mets. Only does not want to consider further aggressive intervention or evaluation. She currently has pain secondary to metastatic disease to the bone. -Comfort cares only -IV fluids for hydration -Continue hydrocodone 10 mg every 4 hours as needed -Fentanyl patch 12 mcg every 72 hours -Decadron 10 mg IV every 12 hours -Plan for shelter placement once pain is controlled PALLIATIVE CARE-family does not want further aggressive interventions or evaluation and feel that this is consistent with the patient's previously expressed wishes MAINTENANCE ISSUES -DVT prophylaxis; Lovenox 40 mg subcu daily -GI prophylaxis; continue outpatient PPI therapy -[place]in catheter; not indicated -Nutrition; regular diet -Nicotine dependence; not required CODE STATUS-DNR/DNI, COMFORT CARES ONLY ADMISSION STATUS-patient will be admitted to inpatient status, expect at least a 2 night hospital stay for evaluation and management of problems as outlined above. At the time of this admission I do not reasonably expected evaluation and management of this problem will require more than a 96 hour hospital stay. DISPOSITION-anticipate discharge to home after the hospital stay. PRIMARY CARE PROVIDER-Peg Cassiyd - Mortality Measure Prognosis:: Good
[2019-12-03] MEDS: Acetaminophen/HYDROcodone 325-5 MG Tab PO PRN ×2 (17:49→23:03)
[2019-12-03] MEDS: fentaNYL 12 MCG/HR Transdermal Patch TRDERM SCH (18:04)
[2019-12-03] MEDS: Dexamethasone 4 MG/ML SDV IVPUSH SCH (18:07)
[2019-12-03] MEDS: LORazepam 0.5 MG Tab PO PRN ×2 (18:46→23:03)
[2019-12-03] MEDS: Sodium Chloride 0.9% 1,000 ML IV SCH (19:37)
[2019-12-03] MEDS: Gabapentin 300 MG Cap PO SCH ×2 (20:57→22:36)
[2019-12-03] MEDS: [UNRECOGNIZED DRUG - REMARK] TOP SCH (22:35)
[2019-12-03] MEDS: Calcium Carbonate 500 MG Tab.Chew PO PRN (23:03)
[2019-12-04] MEDS: Calcium Carbonate 500 MG Tab.Chew PO PRN ×2 (02:48→06:42)
[2019-12-04] MEDS: Acetaminophen/HYDROcodone 325-5 MG Tab PO PRN ×5 (03:09→21:59)
[2019-12-04] MEDS: LORazepam 0.5 MG Tab PO PRN ×2 (03:09→10:29)
[2019-12-04] MEDS: Sodium Chloride 0.9% 1,000 ML IV SCH (03:11)
[2019-12-04] MEDS: Gabapentin 300 MG Cap PO SCH ×4 (06:10→21:59)
[2019-12-04] MEDS: Dexamethasone 4 MG/ML SDV IVPUSH SCH ×2 (06:10→17:29)
[2019-12-04] MEDS ORDERED: Pantoprazole 40 MG Tab.CR PO SCH (07:30)
[2019-12-04] MEDS: Atenolol 50 MG Tab PO SCH (08:49)
[2019-12-04] MEDS: Citalopram 20 MG Tab PO SCH (08:49)
[2019-12-04] MEDS: amLODIPine 5 MG Tab PO SCH (08:50)
[2019-12-04] MEDS: Tamoxifen 10 MG Tab PO SCH (08:50)
[2019-12-04] MEDS: Lisinopril 10 MG Tab PO SCH (08:50)
[2019-12-04] MEDS: Enoxaparin 40 MG/0.4 ML Syringe SUBCUT SCH (08:51)
[2019-12-04] MEDS: [UNRECOGNIZED DRUG - REMARK] TOP SCH ×2 (08:51→20:22)
[2019-12-04] MEDS ORDERED: PALBOCICLIB PO SCH (09:00)
--- NOTE | 2019-12-04 09:36 | PCM.PN ---
- General Info Date of Service: 12/04/19 Subjective Update: Ms. Rutledge stable since admission, continues to experience significant pain. She remains very confused and unable to provide meaningful history concerning symptoms or review of systems. - Patient Data Vitals - Most Recent: Last Vital Signs Temp 97.2 F 12/04/19 02:42 Pulse 69 12/04/19 08:49 Resp 16 12/04/19 02:42 BP 212/80 H 12/04/19 08:50 Pulse Ox 97 12/04/19 02:42 Weight - Most Recent: 188 lb 11.451 oz I&O - Last 24 Hours: Intake & Output 12/03/19 12/04/19 12/04/19 22:59 06:59 14:59 Intake Total 2188 Output Total 700 600 Balance -700 1588 Med Orders - Current: Current Medications Hydrocodone Bitart/Acetaminophen ([place] 325-5 Mg) 2 tab PO Q4H PRN PRN Reason: Pain Last Admin: 12/04/19 08:48 Dose: 2 tab Albuterol (Proventil Neb Soln) 2.5 mg NEB Q4H PRN PRN Reason: Shortness Of Breath/wheezing Amlodipine Besylate (Norvasc) 2.5 mg PO DAILY [facility] Last Admin: 12/04/19 08:50 Dose: 2.5 mg Atenolol (Tenormin) 50 mg PO DAILY [facility] Last Admin: 12/04/19 08:49 Dose: 50 mg Calcium Carbonate/Glycine (Tums) 1,000 mg PO Q2H PRN PRN Reason: Indigestion Last Admin: 12/04/19 06:42 Dose: 1,000 mg Citalopram Hydrobromide (Celexa) 20 mg PO DAILY [facility] Last Admin: 12/04/19 08:49 Dose: 20 mg Dexamethasone (Dexamethasone) 4 mg IVPUSH Q12H [facility] Last Admin: 12/04/19 06:10 Dose: 4 mg Enoxaparin Sodium (Lovenox) 40 mg SUBCUT DAILY [facility] Last Admin: 12/04/19 08:51 Dose: 40 mg Fentanyl (Duragesic) 12 mcg TRDERM Q72H [facility] Last Admin: 12/03/19 18:04 Dose: 12 mcg Gabapentin (Neurontin) 600 mg PO QID [facility] Last Admin: 12/04/19 06:10 Dose: 600 mg Lisinopril (Prinivil) 10 mg PO DAILY [facility] Last Admin: 12/04/19 08:50 Dose: 10 mg Lorazepam (Ativan) 0.5 mg PO Q4H PRN PRN Reason: Anxiety Last Admin: 12/04/19 03:09 Dose: 0.5 mg Non-Formulary Medication (Palbociclib [Ibrance]) 1 tab PO DAILY [facility] Check Fentanyl Patch (Twice Daily) 0 each TOP BID [facility] Last Admin: 12/04/19 08:51 Dose: Not Given Ondansetron HCl (Zofran) 4 mg IV Q4H PRN PRN Reason: Nausea/Vomiting Pantoprazole Sodium (Protonix) 40 mg PO ACBREAKFAST [facility] Last Admin: 12/04/19 06:42 Dose: 40 mg Polyethylene Glycol (Miralax) 17 gm PO DAILY PRN PRN Reason: Constipation Senna/Docusate Sodium (Senna Plus) 1 tab PO BID [facility] Last Admin: 12/04/19 08:50 Dose: 1 tab Sodium Chloride (Saline Flush) 10 ml FLUSH ASDIRECTED PRN PRN Reason: Keep Vein Open Tamoxifen Citrate (Nolvadex) 20 mg PO DAILY [facility] Last Admin: 12/04/19 08:50 Dose: 20 mg Discontinued Medications Sodium Chloride (Normal Saline) 1,000 mls @ 125 mls/hr IV ASDIRECTED [facility] Last Admin: 12/04/19 03:11 Dose: 125 mls/hr - Exam General: Alert, Cooperative, Moderate Distress. No: Oriented Lungs: Clear to Auscultation, Normal Respiratory Effort Cardiovascular: Regular Rate, Regular Rhythm, No Murmurs GI/Abdominal Exam: Soft, Non-Tender, No Organomegaly, No Distention Extremities: Non-Tender, No Pedal Edema Neurological: No: Strength Equal Bilateral (Right arm and leg weakness) Sepsis Event Note - Evaluation Sepsis Screening Result: No Definite Risk - Focused Exam Vital Signs: Vital Signs Temp Pulse Pulse Resp BP BP Pulse Ox 12/04/19 08:50 212/80 H 12/04/19 08:49 69 212/80 H 12/04/19 02:42 97.2 F 67 16 188/68 H 97 12/03/19 22:38 96.6 F 66 16 175/69 H 95 Date Exam was Performed: 02/05/20 Time Exam was Performed: 09:33 - Problem List Review Problem List Initiated/Reviewed/Updated: Yes - My Orders Last 24 Hours: My Active Orders 12/03/19 17:24 Acetaminophen/HYDROcodone [[place] 325-5 MG] 2 tab PO Q4H PRN LORazepam [Ativan] 0.5 mg PO Q4H PRN 12/03/19 17:29 Patient Status [ADT] Routine Ambulate [RC] QID Intake and Output [RC] QSHIFT Notify Provider Vital Signs [RC] ASDIRECTED Oxygen Therapy [RC] PRN Up to Chair [RC] QID VTE/DVT Education [RC] Per Unit Routine Vital Signs [RC] Q4H Albuterol [Proventil Neb Soln] 2.5 mg NEB Q4H PRN Ondansetron [Zofran] 4 mg IV Q4H PRN Sodium Chloride 0.9% [Saline Flush] 10 ml FLUSH ASDIRECTED PRN polyethylene glycoL 3350 [MiraLAX] 17 gm PO DAILY PRN Peripheral IV Insertion Adult [OM.PC] Routine Resuscitation Status Routine 12/03/19 17:31 Peripheral IV Care [RC] . DIRECTED RT Aerosol Therapy [RC] ASDIRECTED 12/03/19 18:00 dexAMETHasone [Dexamethasone] 4 mg IVPUSH Q12H fentaNYL [Duragesic] 12 mcg TRDERM Q72H 12/03/19 18:09 Consult to Physical Therapy [PT Evaluation and Treatment] [CONS] Routine 12/03/19 21:00 Docusate Sodium/Sennosides [Senna Plus] 1 tab PO BID Non-Formulary Medication [NF Drug] 0 each TOP BID 12/03/19 22:00 Gabapentin [Neurontin] 600 mg PO QID 12/03/19 22:48 Calcium Carbonate [Tums] 1,000 mg PO Q2H PRN 12/03/19 Dinner Regular Diet [DIET] 12/04/19 07:30 Pantoprazole [ProTONIX] 40 mg PO ACBREAKFAST 12/04/19 09:00 Citalopram [Celexa] 20 mg PO DAILY Enoxaparin [Lovenox] 40 mg SUBCUT DAILY Palbociclib [Ibrance] 1 tab PO DAILY Tamoxifen [Nolvadex] 20 mg PO DAILY amLODIPine [Norvasc] 2.5 mg PO DAILY atenoloL [Tenormin] 50 mg PO DAILY lisinopriL [Prinivil] 10 mg PO DAILY 12/04/19 09:32 Convert IV to Saline Lock [OM.PC] Routine - Plan Plan:: ASSESSMENT AND PLAN 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 New weakness and confusion present over the past week likely secondary to current brain mets. Family does not want to consider further aggressive intervention or evaluation. She currently has pain secondary to metastatic disease to the bone. -Comfort cares only -Saline lock IV -Continue hydrocodone 10 mg every 4 hours as needed -Fentanyl patch 12 mcg every 72 hours -Decadron 10 mg IV every 12 hours -Plan for [facility] placement once pain is controlled PALLIATIVE CARE-family does not want further aggressive interventions or evaluation and feel that this is consistent with the patient's previously expressed wishes MAINTENANCE ISSUES -DVT prophylaxis; not indicated -GI prophylaxis; continue outpatient PPI therapy -Augustin catheter; not indicated -Nutrition; regular diet -Nicotine dependence; not required CODE STATUS-DNR/DNI, COMFORT CARES ONLY ADMISSION STATUS-patient will be admitted to inpatient status, expect at least a 2 night hospital stay for evaluation and management of problems as outlined above. At the time of this admission I do not reasonably expected evaluation and management of this problem will require more than a 96 hour hospital stay. DISPOSITION-anticipate discharge to home after the hospital stay. PRIMARY CARE PROVIDER-Peg Cassidy
[2019-12-04] MEDS: Famotidine 20 MG Tab PO SCH ×2 (10:25→20:21)
[2019-12-04] MEDS: Pantoprazole 40 MG Tab.CR PO SCH (15:30)
[2019-12-05] MEDS: Acetaminophen/HYDROcodone 325-5 MG Tab PO PRN ×4 (03:21→21:10)
[2019-12-05] MEDS: Gabapentin 300 MG Cap PO SCH ×4 (05:25→21:04)
[2019-12-05] MEDS: Dexamethasone 4 MG/ML SDV IVPUSH SCH ×2 (05:25→17:23)
[2019-12-05] MEDS: Pantoprazole 40 MG Tab.CR PO SCH ×2 (07:40→15:32)
[2019-12-05] MEDS: Tamoxifen 10 MG Tab PO SCH (08:33)
[2019-12-05] MEDS: Citalopram 20 MG Tab PO SCH (08:34)
[2019-12-05] MEDS: Enoxaparin 40 MG/0.4 ML Syringe SUBCUT SCH (08:34)
[2019-12-05] MEDS: Famotidine 20 MG Tab PO SCH ×2 (08:34→21:03)
[2019-12-05] MEDS: amLODIPine 5 MG Tab PO SCH (08:38)
[2019-12-05] MEDS: Lisinopril 10 MG Tab PO SCH (08:40)
[2019-12-05] MEDS: Atenolol 50 MG Tab PO SCH (08:40)
--- NOTE | 2019-12-05 09:34 | PCM.PN ---
- General Info Date of Service: 12/05/19 Subjective Update: Ms. Rutledge has been stable since yesterday, reports pain control improved with fentanyl patch. Remains very confused and unable to provide any meaningful history concerning symptoms or review of systems. - Review of Systems Neurological: Reports: Difficulty Walking, Weakness (Right arm and leg weakness) . Denies: Trouble Speaking - Patient Data Vitals - Most Recent: Last Vital Signs Temp 97.1 F 12/05/19 08:00 Pulse 63 12/05/19 08:40 Resp 16 12/05/19 08:00 BP 184/61 H 12/05/19 08:40 Pulse Ox 98 12/05/19 08:00 Weight - Most Recent: 188 lb 11.451 oz I&O - Last 24 Hours: Intake & Output 12/04/19 12/05/19 12/05/19 22:59 06:59 14:59 Output Total 200 900 Balance -200 -900 Med Orders - Current: Current Medications Hydrocodone Bitart/Acetaminophen ([place] 325-5 Mg) 2 tab PO Q4H PRN PRN Reason: Pain Last Admin: 12/05/19 08:33 Dose: 2 tab Albuterol (Proventil Neb Soln) 2.5 mg NEB Q4H PRN PRN Reason: Shortness Of Breath/wheezing Amlodipine Besylate (Norvasc) 2.5 mg PO DAILY [facility] Last Admin: 12/05/19 08:38 Dose: 2.5 mg Atenolol (Tenormin) 50 mg PO DAILY [facility] Last Admin: 12/05/19 08:40 Dose: 50 mg Calcium Carbonate/Glycine (Tums) 1,000 mg PO Q2H PRN PRN Reason: Indigestion Last Admin: 12/04/19 06:42 Dose: 1,000 mg Citalopram Hydrobromide (Celexa) 20 mg PO DAILY [facility] Last Admin: 12/05/19 08:34 Dose: 20 mg Dexamethasone (Dexamethasone) 4 mg IVPUSH Q12H [facility] Last Admin: 12/05/19 05:25 Dose: 4 mg Enoxaparin Sodium (Lovenox) 40 mg SUBCUT DAILY [facility] Last Admin: 12/05/19 08:34 Dose: 40 mg Famotidine (Pepcid) 20 mg PO BID [facility] Last Admin: 12/05/19 08:34 Dose: 20 mg Fentanyl (Duragesic) 12 mcg TRDERM Q72H [facility] Last Admin: 12/03/19 18:04 Dose: 12 mcg Gabapentin (Neurontin) 600 mg PO QID [facility] Last Admin: 12/05/19 05:25 Dose: 600 mg Lisinopril (Prinivil) 10 mg PO DAILY [facility] Last Admin: 12/05/19 08:40 Dose: 10 mg Lorazepam (Ativan) 0.5 mg PO Q4H PRN PRN Reason: Anxiety Last Admin: 12/04/19 10:29 Dose: 0.5 mg Check Fentanyl Patch (Twice Daily) 0 each TOP BID [facility] Last Admin: 12/04/19 20:22 Dose: Not Given Ondansetron HCl (Zofran) 4 mg IV Q4H PRN PRN Reason: Nausea/Vomiting Pantoprazole Sodium (Protonix) 40 mg PO BIDAC [facility] Last Admin: 12/05/19 07:40 Dose: 40 mg Polyethylene Glycol (Miralax) 17 gm PO DAILY PRN PRN Reason: Constipation Senna/Docusate Sodium (Senna Plus) 1 tab PO BID [facility] Last Admin: 12/05/19 08:35 Dose: 1 tab Sodium Chloride (Saline Flush) 10 ml FLUSH ASDIRECTED PRN PRN Reason: Keep Vein Open Tamoxifen Citrate (Nolvadex) 20 mg PO DAILY [facility] Last Admin: 12/05/19 08:33 Dose: 20 mg Discontinued Medications Sodium Chloride (Normal Saline) 1,000 mls @ 125 mls/hr IV ASDIRECTED [facility] Last Admin: 12/04/19 03:11 Dose: 125 mls/hr Non-Formulary Medication (Palbociclib [Ibrance]) 1 tab PO DAILY [facility] Last Admin: 12/04/19 11:36 Dose: Not Given Pantoprazole Sodium (Protonix) 40 mg PO ACBREAKFAST [facility] Last Admin: 12/04/19 06:42 Dose: 40 mg - Exam General: Alert, Cooperative, No Acute Distress, Mild Distress. No: Oriented Lungs: Clear to Auscultation, Normal Respiratory Effort Cardiovascular: Regular Rate, Regular Rhythm, No Murmurs GI/Abdominal Exam: Soft, Non-Tender, No Organomegaly, No Distention Neurological: No: Strength Equal Bilateral (Right arm and leg weakness) Sepsis Event Note - Evaluation Sepsis Screening Result: No Definite Risk - Focused Exam Vital Signs: Vital Signs Temp Pulse Pulse Resp BP BP Pulse Ox 12/05/19 08:40 63 184/61 H 12/05/19 08:38 184/61 H 12/05/19 08:00 97.1 F 62 16 184/61 H 98 12/05/19 03:23 97.3 F 60 16 149/80 H 99 12/05/19 00:00 97.3 F 64 16 198/65 H 97 Date Exam was Performed: 12/05/19 Time Exam was Performed: 09:29 - Problem List Review Problem List Initiated/Reviewed/Updated: Yes - My Orders Last 24 Hours: My Active Orders 12/04/19 09:00 Citalopram [Celexa] 20 mg PO DAILY Enoxaparin [Lovenox] 40 mg SUBCUT DAILY Tamoxifen [Nolvadex] 20 mg PO DAILY amLODIPine [Norvasc] 2.5 mg PO DAILY atenoloL [Tenormin] 50 mg PO DAILY lisinopriL [Prinivil] 10 mg PO DAILY 12/04/19 09:32 Convert IV to Saline Lock [OM.PC] Routine 12/04/19 09:45 Famotidine [Pepcid] 20 mg PO BID 12/04/19 16:30 Pantoprazole [ProTONIX] 40 mg PO BIDAC - Plan Plan:: ASSESSMENT AND PLAN 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 New weakness and confusion present over the past week likely secondary to current brain mets. Family does not want to consider further aggressive intervention or evaluation. She currently has pain secondary to metastatic disease to the bone. -Saline lock IV -Continue hydrocodone 10 mg every 4 hours as needed -Fentanyl patch 12 mcg every 72 hours -Decadron 10 mg IV every 12 hours -Plan [facility] for restorative physical therapy and Occupational Therapy PALLIATIVE CARE MAINTENANCE ISSUES -DVT prophylaxis; not indicated -GI prophylaxis; continue outpatient PPI therapy -Augustin catheter; not indicated -Nutrition; regular diet -Nicotine dependence; not required CODE STATUS-DNR/DNI ADMISSION STATUS-patient will be admitted to inpatient status, expect at least a 2 night hospital stay for evaluation and management of problems as outlined above. At the time of this admission I do not reasonably expected evaluation and management of this problem will require more than a 96 hour hospital stay. DISPOSITION-anticipate discharge to home after the hospital stay. PRIMARY CARE PROVIDER-Peg Cassidy
[2019-12-05] MEDS: [UNRECOGNIZED DRUG - REMARK] TOP SCH ×2 (11:15→21:02)
[2019-12-05] MEDS: LORazepam 0.5 MG Tab PO PRN ×2 (11:49→17:14)
[2019-12-05] MEDS ORDERED: Lisinopril 20 MG Tab PO ONE (16:00)
[2019-12-05] MEDS ORDERED: Haloperidol Lactate 5 MG/ML SDV IVPUSH ONE (22:21)
[2019-12-05] MEDS ORDERED: cloNIDine 0.1 MG Tab PO ONE (22:49)
[2019-12-06] MEDS: fentaNYL 12 MCG/HR Transdermal Patch TRDERM SCH (00:27)
[2019-12-06] MEDS: Gabapentin 300 MG Cap PO SCH ×2 (06:12→09:28)
[2019-12-06] MEDS: Dexamethasone 4 MG/ML SDV IVPUSH SCH (06:33)
[2019-12-06 07:32] VITALS: BP 203/63; PULSE 56
[2019-12-06] MEDS ORDERED: Lisinopril 20 MG Tab PO SCH (09:00)
[2019-12-06] MEDS: Pantoprazole 40 MG Tab.CR PO SCH (09:25)
[2019-12-06] MEDS: Citalopram 20 MG Tab PO SCH (09:26)
[2019-12-06] MEDS: Tamoxifen 10 MG Tab PO SCH (09:26)
[2019-12-06] MEDS: Enoxaparin 40 MG/0.4 ML Syringe SUBCUT SCH (09:26)
[2019-12-06] MEDS: amLODIPine 5 MG Tab PO SCH (09:26)
[2019-12-06] MEDS: Famotidine 20 MG Tab PO SCH (09:27)
[2019-12-06] MEDS: Atenolol 50 MG Tab PO SCH (09:28)
[2019-12-06] MEDS: [UNRECOGNIZED DRUG - REMARK] TOP SCH (09:33)
--- NOTE | 2019-12-06 10:14 | PCM.DCSUM1 ---
Discharge Summary - Hospital Course Brief History: Ms. Rutledge is a 74-year-old woman who was admitted as a direct admission from the clinic with increased weakness, confusion, and neurologic deficits secondary to widely metastatic breast carcinoma. - Discharge Data Discharge Date: 12/06/19 Discharge Disposition: DC/Tfer to SNF 03 Condition: Poor - Referral to Home Health Primary Care Physician: Phuong Cassidy PA-C - Patient Summary/Data Consults: Consultations 12/03/19 18:09 Consult to Physical Therapy [PT Evaluation and Treatment] [CONS] Routine Please Evaluate and Treat. PT Reason for Consult: New weakness and falls This query below is only for informational purposes and is not editable. Admission Diagnosis/Problem: Pain Hospital Course: Ms. Rutledge is a 74-year-old woman who was admitted as a direct admission from the oncology clinic with uncontrolled pain and new weakness secondary to metastatic end-stage breast carcinoma. Ms. Rutledge has known [employer] WORK[employer] metastatic disease and recently has become progressively more weak with frequent falls at home. She also has known metastatic disease to bone and uncontrolled pain related to this. She has had 3 known metastatic lesions to the brain and has received 2 courses of radiation therapy. Over the past week has become progressively more confused with right leg weakness and frequent falls. Initially the request from oncology clinic was for admission for pain control and lumbar puncture to evaluate for leptomeningeal disease. Ms. Rutledge is very confused and unable to provide a meaningful history concerning her recent symptoms or review of systems. Her niece is present and is her healthcare power of senior controls engineer. She strongly feels that Ms. Rutledge would not want further aggressive intervention or evaluation, she has been told by her oncology provider that her lifespan is very limited at this point. Her niece has requested that we proceed with comfort cares only and not pursue further aggressive interventions or evaluation. Ms. Rutledge was experiencing significant pain on admission related to metastatic disease to her spine. She was continued on hydrocodone 10 mg every 4 hours and also was started on a fentanyl patch 12 mcg every 72 hours. By the time of discharge pain was much better controlled. Decision was made to [facility] the prison if she is no longer safe at home. She will initially receive physical therapy and Occupational Therapy to see if she can improve as far as overall strength. If she is unable to improve decision will be made to move to hospice care. Activity will be as tolerated and she will resume her usual diet. - Patient Instructions Diet: Usual Diet as Tolerated Activity: As Tolerated Other/Special Instructions: Restorative physical therapy and occupational therapy while at the prison - Discharge Plan *PRESCRIPTION DRUG MONITORING PROGRAM REVIEWED*: Not Applicable *COPY OF PRESCRIPTION DRUG MONITORING REPORT IN PATIENT [place]: Not Applicable Prescriptions/Med Rec: Acetaminophen/HYDROcodone [[place] 325-5 MG] 2 tab PO Q4H PRN #30 tablet PRN Reason: Pain dexAMETHasone [Dexamethasone] 4 mg PO DAILY #4 tablet fentaNYL [Duragesic] 12 mcg TRDERM Q72H #3 patch Home Medications: Home Meds Atenolol [Tenormin] 50 mg PO DAILY 03/17/16 [History] Citalopram Hydrobromide [Celexa] 20 mg PO DAILY 03/17/16 [History] Pantoprazole [ProTONIX] 40 mg PO ACBREAKFAST 03/17/16 [History] amLODIPine [Norvasc] 2.5 mg PO DAILY 03/17/16 [History] Acetaminophen [Tylenol] 650 mg PO Q6H PRN 05/28/16 [History] Albuterol Sulfate [Albuterol Sulfate Hfa] 2 inh INH QID 12/03/19 [History] Calcium Carbonate [Calcium] 500 mg PO DAILY 12/03/19 [History] Cyclobenzaprine [Flexeril] 10 mg PO TID PRN 12/03/19 [History] Diclofenac Sodium [Voltaren 1% Gel] 1 applic TOP QID 12/03/19 [History] Ferrous Sulfate 325 mg PO DAILY 12/03/19 [History] Gabapentin [Neurontin] 2 tab PO QID 12/03/19 [History] Multivitamin [Multi-Vitamin Daily] 1 tab PO DAILY 12/03/19 [History] Ondansetron [Zofran] 8 mg PO Q8H PRN 12/03/19 [History] Sennosides/Docusate Sodium [Senokot-S Tablet] 1 tab PO DAILY 12/03/19 [History] Tamoxifen [Nolvadex] 20 mg PO DAILY 12/03/19 [History] Acetaminophen/HYDROcodone [[place] 325-5 MG] 2 tab PO Q4H PRN #30 tablet 12/06/19 [Rx] LORazepam [Ativan] 0.5 mg PO Q4H PRN #20 12/06/19 [Rx] dexAMETHasone [Dexamethasone] 4 mg PO DAILY #4 tablet 12/06/19 [Rx] fentaNYL [Duragesic] 12 mcg TRDERM Q72H #3 patch 12/06/19 [Rx] lisinopriL [Prinivil] 20 mg PO DAILY tablet 12/06/19 [Rx] - Discharge Summary/Plan Comment DC Time >30 min.: No - Patient Data Vitals - Most Recent: Last Vital Signs Temp 97.1 F 12/06/19 07:00 Pulse 56 L 12/06/19 09:28 Resp 18 12/06/19 07:00 BP 203/63 H 12/06/19 09:28 Pulse Ox 99 12/06/19 07:00 Weight - Most Recent: 188 lb 11.451 oz I&O - Last 24 hours: Intake & Output 12/05/19 12/06/19 12/06/19 22:59 06:59 14:59 Intake Total 480 Output Total 950 150 250 Balance -470 -150 -250 Lab Results - Last 24 hrs: Laboratory Results - last 24 hr 12/06/19 Range/Units 00:25 Urine Color Yellow (YELLOW) Urine Appearance Clear (CLEAR) Urine pH 7.0 (5.0-8.0) Ur Specific [place] 1.015 (1.008-1.030) Urine Protein Negative (NEGATIVE) mg/dL Urine Glucose (UA) Negative (NEGATIVE) mg/dL Urine Ketones Negative (NEGATIVE) mg/dL Urine Occult Blood Negative (NEGATIVE) Urine Nitrite Negative (NEGATIVE) Urine Bilirubin Negative (NEGATIVE) Urine Urobilinogen 0.2 (0.2-1.0) EU/dL Ur Leukocyte Esterase Negative (NEGATIVE) Urine RBC Not seen (0-5) Urine WBC 0-5 (0-5) Ur Epithelial Cells Rare Amorphous Sediment Rare Urine Bacteria Not seen Urine Mucus Not seen Med Orders - Current: Current Medications Hydrocodone Bitart/Acetaminophen ([place] 325-5 Mg) 2 tab PO Q4H PRN PRN Reason: Pain Last Admin: 12/05/19 21:10 Dose: 2 tab Albuterol (Proventil Neb Soln) 2.5 mg NEB Q4H PRN PRN Reason: Shortness Of Breath/wheezing Amlodipine Besylate (Norvasc) 2.5 mg PO DAILY [facility] Last Admin: 02/07/20 09:26 Dose: 2.5 mg Atenolol (Tenormin) 50 mg PO DAILY [facility] Last Admin: 12/06/19 09:28 Dose: 50 mg Calcium Carbonate/Glycine (Tums) 1,000 mg PO Q2H PRN PRN Reason: Indigestion Last Admin: 12/04/19 06:42 Dose: 1,000 mg Citalopram Hydrobromide (Celexa) 20 mg PO DAILY [facility] Last Admin: 12/06/19 09:26 Dose: 20 mg Dexamethasone (Dexamethasone) 4 mg IVPUSH Q12H [facility] Last Admin: 12/06/19 06:33 Dose: 4 mg Enoxaparin Sodium (Lovenox) 40 mg SUBCUT DAILY [facility] Last Admin: 12/06/19 09:26 Dose: 40 mg Famotidine (Pepcid) 20 mg PO BID [facility] Last Admin: 12/06/19 09:27 Dose: 20 mg Fentanyl (Duragesic) 12 mcg TRDERM Q72H [facility] Stop: 12/06/19 17:00 Last Admin: 12/06/19 00:27 Dose: 12 mcg Fentanyl (Duragesic) 12 mcg TRDERM Q72H [facility] Gabapentin (Neurontin) 600 mg PO QID [facility] Last Admin: 12/06/19 09:28 Dose: 600 mg Lisinopril (Prinivil) 20 mg PO DAILY [facility] Last Admin: 12/06/19 09:27 Dose: 20 mg Lorazepam (Ativan) 0.5 mg PO Q4H PRN PRN Reason: Anxiety Last Admin: 12/05/19 17:14 Dose: 0.5 mg Check Fentanyl Patch (Twice Daily) 0 each TOP BID [facility] Last Admin: 12/06/19 09:33 Dose: 1 each Ondansetron HCl (Zofran) 4 mg IV Q4H PRN PRN Reason: Nausea/Vomiting Pantoprazole Sodium (Protonix) 40 mg PO BIDAC [facility] Last Admin: 12/06/19 09:25 Dose: 40 mg Polyethylene Glycol (Miralax) 17 gm PO DAILY PRN PRN Reason: Constipation Senna/Docusate Sodium (Senna Plus) 1 tab PO BID [facility] Last Admin: 12/06/19 09:28 Dose: 1 tab Sodium Chloride (Saline Flush) 10 ml FLUSH ASDIRECTED PRN PRN Reason: Keep Vein Open Tamoxifen Citrate (Nolvadex) 20 mg PO DAILY [facility] Last Admin: 12/06/19 09:26 Dose: 20 mg Discontinued Medications Clonidine HCl (Catapres) 0.1 mg PO ONETIME ONE Stop: 12/05/19 22:50 Last Admin: 12/06/19 00:16 Dose: 0.1 mg Haloperidol Lactate (Haldol) 2.5 mg IVPUSH ONETIME ONE Stop: 12/05/19 22:22 Last Admin: 12/05/19 22:35 Dose: 2.5 mg Sodium Chloride (Normal Saline) 1,000 mls @ 125 mls/hr IV ASDIRECTED [facility] Last Admin: 12/04/19 03:11 Dose: 125 mls/hr Lisinopril (Prinivil) 10 mg PO DAILY [facility] Last Admin: 12/05/19 08:40 Dose: 10 mg Lisinopril (Prinivil) 20 mg PO ONETIME ONE Stop: 12/05/19 16:01 Last Admin: 12/05/19 15:36 Dose: 20 mg Non-Formulary Medication (Palbociclib [Ibrance]) 1 tab PO DAILY [facility] Last Admin: 12/04/19 11:36 Dose: Not Given Pantoprazole Sodium (Protonix) 40 mg PO ACBREAKFAST [facility] Last Admin: 12/04/19 06:42 Dose: 40 mg - Exam General: Reports: Alert, Cooperative, Moderate Distress. Denies: Oriented Lungs: Reports: Clear to Auscultation, Normal Respiratory Effort Cardiovascular: Reports: Regular Rate, Regular Rhythm, No Murmurs GI/Abdominal Exam: Soft, Non-Tender, No Organomegaly, No Distention Neurological: Denies: Strength Equal Bilateral (Right upper and lower extremity weakness)
[2019-12-06] MEDS: Acetaminophen/HYDROcodone 325-5 MG Tab PO PRN (10:21)
[2019-12-08] MEDS ORDERED: fentaNYL 12 MCG/HR Transdermal Patch TRDERM SCH (20:00)
[2019-12-12] MEDS: LORazepam 0.5 MG Tab PO PRN (08:55)
== END 2019-12-06 11:10 | DRG 948 ==
LOC: JP.MS 15:25 → JP.ICU 15:37 → JP.MS 12-05 13:49
PROVIDERS: ADMIT Hospitalist; ATTEND Hospitalist
DX: G89.3 Neoplasm related pain (acute) (chronic) (principal); C79.51 Secondary malignant neoplasm of bone; C79.31 Secondary malignant neoplasm of brain; C50.919 Malignant neoplasm of unspecified site of unspecified female breast; R29.6 Repeated falls; H54.7 Unspecified visual loss; I25.10 Atherosclerotic heart disease of native coronary artery without angina pectoris; I10 Essential (primary) hypertension; Z66 Do not resuscitate; E78.00 Pure hypercholesterolemia, unspecified; J44.9 Chronic obstructive pulmonary disease, unspecified; G47.30 Sleep apnea, unspecified; K21.9 Gastro-esophageal reflux disease without esophagitis; Z96.659 Presence of unspecified artificial knee joint; Z51.5 Encounter for palliative care; M54.9 Dorsalgia, unspecified; M19.90 Unspecified osteoarthritis, unspecified site; F41.9 Anxiety disorder, unspecified; E66.9 Obesity, unspecified; F32.9 Major depressive disorder, single episode, unspecified; E55.9 Vitamin D deficiency, unspecified; Z90.49 Acquired absence of other specified parts of digestive tract; Z98.51 Tubal ligation status; Z90.10 Acquired absence of unspecified breast and nipple; Z88.5 Allergy status to narcotic agent; Z88.2 Allergy status to sulfonamides; Z95.1 Presence of aortocoronary bypass graft; Z98.49 Cataract extraction status, unspecified eye; Z88.6 Allergy status to analgesic agent; Z88.8 Allergy status to other drugs, medicaments and biological substances; Z79.51 Long term (current) use of inhaled steroids; Z79.899 Other long term (current) drug therapy
CPT/HCPCS: 81001; 97110-GP; 97162-GP; 97530-GP; A9270-GY; J1100; J1630; J1650; J7030